=== PATIENT | male | born 1960 | race Caucasian/White ===

== ENCOUNTER 2018-05-13 08:24 | Outpatient (CLI) | payer OTHER ==
[~2018-05-13] VITALS: Ht 177.8 cm; Wt 102.1 kg
[~2018-05-13 08:24] MED LIST: ANTIVERT25 M1 PO; LIPOFLAVOVIT CA1 TAB PO; TOPROL XL25 MG
[2018-05-13] MEDS ORDERED: FLONASE16 GM NASAL (11:16)
[2018-05-20] MEDS ORDERED: LANSOPRAZOLE30 MG PO (09:16)
[2018-05-20] MEDS ORDERED: FORTAMET1000 MG PO (09:17)
[2018-05-20] MEDS ORDERED: ETODOLAC400 MG PO (09:17)
[2018-05-20] MEDS ORDERED: METROPOLOL PO (09:18)
== END 2018-05-13 08:45 | disposition home or self-care (01) ==
LOC: OFIC 805 08:24
DX: J31.0 Chronic rhinitis (principal); J34.2 Deviated nasal septum; J37.0 Chronic laryngitis; R49.0 Dysphonia; J38.1 Polyp of vocal cord and larynx

== ENCOUNTER 2018-05-26 05:53 | Day surgery (SDC) | payer OTHER ==
[~2018-05-26 05:53] MED LIST changes: +ETODOLAC400 MG PO; +FLONASE16 GM NASAL; +FORTAMET1000 MG PO; +LANSOPRAZOLE30 MG PO; +METROPOLOL PO
[2018-05-26] MEDS ORDERED: ULTRACET PO (11:59)
== END 2018-05-26 12:35 | disposition home or self-care (01) ==
LOC: CIR.AMB 05:53
DX: J38.1 Polyp of vocal cord and larynx (principal)

== ENCOUNTER 2018-06-03 07:51 | Outpatient (CLI) | payer OTHER ==
[~2018-06-03] VITALS: Ht 152.4 cm; Wt 102.1 kg
[~2018-06-03 07:51] MED LIST changes: +ULTRACET PO
[2018-06-03] MEDS ORDERED: FLONASE16 GM NASAL (08:58)
[2018-06-03] MEDS ORDERED: CLARITIN10 MG PO (08:58)
== END 2018-06-03 08:10 | disposition home or self-care (01) ==
LOC: OFIC 805 07:51
DX: J31.0 Chronic rhinitis (principal); J34.2 Deviated nasal septum; J37.0 Chronic laryngitis; R49.0 Dysphonia; J38.1 Polyp of vocal cord and larynx

== ENCOUNTER 2018-09-09 08:05 | Outpatient (CLI) | payer OTHER ==
[~2018-09-09] VITALS: Ht 152.4 cm; Wt 110.7 kg
[~2018-09-09 08:05] MED LIST changes: +CLARITIN10 MG PO
[2018-09-09] MEDS ORDERED: CLARITIN10 MG PO (09:33)
[2018-09-09] MEDS ORDERED: FLONASE16 GM NASAL (09:33)
== END 2018-09-09 08:20 | disposition home or self-care (01) ==
LOC: OFIC 805 08:05
DX: J31.0 Chronic rhinitis (principal); J34.2 Deviated nasal septum; J37.0 Chronic laryngitis; R49.0 Dysphonia; J38.1 Polyp of vocal cord and larynx; F17.210 Nicotine dependence, cigarettes, uncomplicated

== ENCOUNTER 2018-12-02 07:18 | Outpatient (CLI) | payer OTHER ==
[~2018-12-02] VITALS: Ht 152.4 cm; Wt 108.9 kg
[2018-12-02] MEDS ORDERED: CLARITIN10 MG PO (09:19)
[2018-12-02] MEDS ORDERED: FLONASE16 GM NASAL (09:20)
== END 2018-12-02 07:35 | disposition home or self-care (01) ==
LOC: OFIC 805 07:18
DX: J37.0 Chronic laryngitis (principal); J31.0 Chronic rhinitis

== ENCOUNTER 2019-06-02 07:54 | Outpatient (CLI) | payer OTHER ==
[~2019-06-02] VITALS: Ht 152.4 cm; Wt 104.3 kg
[2019-06-02] MEDS ORDERED: FLONASE16 GM NASAL (11:36)
[2019-06-02] MEDS ORDERED: CLARITIN10 MG PO (11:36)
[2019-06-02] MEDS ORDERED: CEFUROXIME500 MG PO (11:37)
== END 2019-06-02 12:06 | disposition home or self-care (01) ==
LOC: OFIC 805 07:54
DX: J31.0 Chronic rhinitis (principal); J34.2 Deviated nasal septum; J37.0 Chronic laryngitis; J32.8 Other chronic sinusitis; R05 Cough; Z72.0 Tobacco use

== ENCOUNTER → 2020-04-18 | Outpatient (CLI) | payer OTHER ==
[~2020-04-18] MED LIST changes: +CEFUROXIME500 MG PO
== END | disposition home or self-care (01) ==
LOC: OFIC 805 12:15
PROVIDERS: ATTEND Otolaryngology
DX: R22.1 Localized swelling, mass and lump, neck (principal); F17.210 Nicotine dependence, cigarettes, uncomplicated

== ENCOUNTER 2023-06-04 20:49 | Emergency (ER) | payer OTHER ==
[~2023-06-04] VITALS: Ht 177.8 cm; Wt 89.8 kg
[2023-06-04] MEDS ORDERED: DAPSONE25 MG PO (20:59)
[2023-06-04 23:01] LABS: ABG PH 7.437 (7.35-7.45); ABG pCO2 34.9 mmHg (35-45)
[2023-06-04 23:02] LABS: ABG PO2 74.5 mmHg (80-100); BASE EXCESS -0.6 mmol/l; SaO2 95.3 %; Tco2 24.1 mmol/l
[2023-06-04 23:03] LABS: allen test SATISFACTORY; o2 21 %; puncture site RADIAL RIGHT
[2023-06-04 23:16] LABS: URINE APPEARANCE Cloudy; URINE BILIRRUBIN Small (NEGATIVE); URINE BLOOD Negative; URINE COLOR Dark Yellow; URINE GLUCOSE Negative (NEGATIVE); URINE LEUKOCYTE Trace; URINE NITRATE Negative
[2023-06-04 23:20] LABS: URINE BACTERIA 20.1 uL (0.0-1933); URINE EPITHELIAL CELLS 28.9 uL (0.0-38.8); URINE RBC 25.7 uL (0.0-20.8); URINE WBC 4.4 uL (0.0-23.2)
[2023-06-04 23:23] LABS: HEMATOCRIT 42.2 % (39.0-48.0); HEMOGLOBIN 14.4 g/dL (13-16.00); MEAN CELL VOLUME 92.1 fL (80.0-100.00); MEAN CORPUSCULAR HEMOGLOBIN 31.4 pg (27.00-32.0); MEAN CORPUSCULAR HGB CONC 34.1 g/dl (32.0-36.0); RED BLOOD COUNT 4.58 M/uL (4.00-6.00); RED CELL DISTRIBUTION WIDTH 13.2 % (11.5-14.5)
[2023-06-04 23:24] LABS: PLATELET COUNT 129 K/uL (150-450); URINE PROTEIN 100 (NEGATIVE)
[2023-06-04 23:39] LABS: CALCIUM 8.7 mg/dL (8.5-10.1); CREATININE SERUM 0.74 mg/dL (0.70-1.30); GFR 107.17; POTASSIUM 3.53 mEq/L (3.5-5.1)
[2023-06-04 23:41] LABS: URINE CRYSTALS FEW /HPF
[2023-06-04 23:42] LABS: URINE MUCUS MODERATE
[2023-06-04] MEDS ORDERED: DOLOGESIC 500-1 EACH PO (23:53)
== END 2023-06-05 01:05 | disposition home or self-care (01) ==
LOC: ER 20:49
PROVIDERS: General Practice
DX: B34.9 Viral infection, unspecified (principal); I10 Essential (primary) hypertension; J45.909 Unspecified asthma, uncomplicated; E11.9 Type 2 diabetes mellitus without complications; Z79.84 Long term (current) use of oral hypoglycemic drugs; Z20.822 Contact with and (suspected) exposure to COVID-19
CPT/HCPCS: 71045; 82803; 96365; 96366; 99284; J7042

== ENCOUNTER 2024-09-21 10:20 | Emergency (ER) | payer OTHER ==
[~2024-09-21] VITALS: Ht 177.8 cm; Wt 88.0 kg
[~2024-09-21 10:20] MED LIST changes: +DAPSONE25 MG PO; +DOLOGESIC 500-1 EACH PO
[2024-09-21] MEDS ORDERED: 0.9 % SODIUM CHLORIDE 1,000 ML IV ONE (11:15)
[2024-09-21] MEDS ORDERED: INSULIN REGULAR, HUMAN 1,000 UNIT/10 ML UNITS IV ONE (11:15)
[2024-09-21 12:27] LABS: HEMATOCRIT 40.8 % (39.0-48.0); HEMOGLOBIN 13.6 g/dL (13-16.00); MEAN CELL VOLUME 96.3 fL (80.0-100.00); MEAN CORPUSCULAR HGB CONC 33.3 g/dl (32.0-36.0); PLATELET COUNT 208 K/uL (150-450); RED BLOOD COUNT 4.24 M/uL (4.00-6.00); RED CELL DISTRIBUTION WIDTH 13.1 % (11.5-14.5)
[2024-09-21 12:51] LABS: PROTHROMBIN TIME 10.9 SECONDS (9.0-11.5)
[2024-09-21 13:04] LABS: ALBUMIN 3.9 gm/dL (3.4-5.0); BILIRUBIN TOTAL 0.34 mg/dL (0.3-1.2); CALCIUM 9.4 mg/dL (8.5-10.1); CREATININE SERUM 0.58 mg/dL (0.70-1.30); GFR 141.5; POTASSIUM 4.38 mEq/L (3.5-5.1); TOTAL PROTEIN 6.9 gm/dL (6.4-8.2)
[2024-09-21 13:19] LABS: URINE APPEARANCE Clear; URINE BILIRRUBIN Negative (NEGATIVE); URINE BLOOD Negative; URINE COLOR Dark Yellow; URINE KETONE Trace (NEGATIVE); URINE LEUKOCYTE Small; URINE NITRATE Negative; URINE PROTEIN 30 (NEGATIVE); URINE UROBILINOGEN 0.2 E.U./dl
[2024-09-21 13:23] LABS: URINE EPITHELIAL CELLS 4.2 uL (0.0-38.8); URINE RBC 3.6 uL (0.0-20.8); URINE WBC 221.6 uL (0.0-23.2)
[2024-09-21 13:30] LABS: URINE CAST 0.44 uL (0.0-1.40); URINE GLUCOSE 500 MG/DL (NEGATIVE)
[2024-09-21] MEDS ORDERED: FAMOtidine 10 MG/ML (4ML VIAL) IV ONE (13:45)
[2024-09-21] MEDS ORDERED: CEFTRIAXONE SODIUM 1,000 MG VIAL IV ONE (13:45)
[2024-09-21] MEDS ORDERED: CEFTRIAXONE SODIUM 1,000 MG VIAL ONE (13:51)
[2024-09-21] MEDS ORDERED: FAMOTIDINE/PF 20 MG/2 ML VIAL ONE (13:51)
[2024-09-21] MEDS ORDERED: LevETIRAcetam 500 MG/5 ML VIAL IV ONE (16:08)
[2024-09-21] MEDS ORDERED: LevETIRAcetam 500 MG/5 ML VIAL IV SCH (17:00)
== END 2024-09-21 22:54 | disposition home or self-care (01) ==
LOC: ER 10:22
PROVIDERS: General Practice
DX: I63.89 Other cerebral infarction (principal); R47.81 Slurred speech; E11.9 Type 2 diabetes mellitus without complications; Z79.84 Long term (current) use of oral hypoglycemic drugs; I10 Essential (primary) hypertension; N40.0 Benign prostatic hyperplasia without lower urinary tract symptoms
CPT/HCPCS: 36415; 70450; 70542; 71045; 96365; 96366; 99285; J0696; J3490; J7030; Q9965; 70552

== ENCOUNTER 2024-11-04 13:16 | Outpatient (CLI) | payer OTHER | END 2024-11-04 13:22 | disposition home or self-care (01) | LOC: SONOGRAMA 13:16 | DX: N50.89 Other specified disorders of the male genital organs (principal) ==